=== PATIENT | female | born 1985 | race Caucasian/White ===

== ENCOUNTER → 2017-07-02 17:20 | Outpatient (CLI) | payer OTHER, SELFPAY ==
[2017-07-02 21:10] LABS: Chlamydia Trachomatis by PCR Negative (Negative); Neisserai gonorrhoeae by PCR Negative (Negative); Probe Check PASS; Sample Adequacy Control PASS; Specimen Processing Control PASS
== END ==
PROVIDERS: Visit Provider Obstetrics & Gynecology
DX: Z34.90 Encounter for supervision of normal pregnancy, unspecified, unspecified trimester (principal); Z3A.00 Weeks of gestation of pregnancy not specified
CPT/HCPCS: 87086; 87491; 87591

== ENCOUNTER → 2017-07-29 16:28 | Outpatient (CLI) | payer OTHER, SELFPAY ==
[2017-07-29 18:11] LABS: Absolute Lymphocyte Count 2.28 X10^3/ul (0.83-4.51); Absolute Neutrophil Count 5.4 X10^3/uL (2.0-7.7); Basophil# 0.02 X10^3/uL; Basophil% 0.2 % (0-1); Eosinophil# 0.17 X10^3/uL; Hematocrit 39.7 % (37-47); Hemoglobin 13.3 g/dl (12.0-15.0); Lymphocyte # 2.28 X10^3/ul (4.0); Lymphocyte % 26.5 % (19-41); Mean Corp Hgb Conc 33.5 g/gl (32-36); Mean Corpuscular Volume 89.6 fL (81-99); Mean Platelet Vol. 9.8 fl (6.2-12.0); Monocyte# 0.73 X10^3/uL; Monocyte% 8.5 % (0-10); Neutrophil # 5.39 X10^3/uL (2.7-7.7); Neutrophil % 62.6 % (47-70); Platelet Count 300 K/mm3 (150-450); RBC Distribution Width CV 12.8 % (11.6-14.6); RBC Distribution Width SD 41.5 fl (35.1-43.9); Red Blood Count 4.43 M/mm3 (4.2-5.4); White Blood Count 8.6 K/mm3 (4.4-11.0)
[2017-07-29 18:14] LABS: POSITIVE COUNT NO; POSITIVE DIFFERENTIAL NO; POSITIVE MORPHOLOGY NO
[2017-07-29 19:35] LABS: HIV - WCH Non-Reactive (Nonreactive); Rubella IgG 206.6 IU/mL
[2017-07-31 07:08] LABS: Rapid Plasmin Reagin (RPR) NONREACTIVE (NONREACTIVE)
[2017-07-31 14:50] LABS: HEPATITIS B SURFACE AG Negative (Negative)
== END ==
PROVIDERS: Visit Provider Obstetrics & Gynecology
DX: Z34.90 Encounter for supervision of normal pregnancy, unspecified, unspecified trimester (principal); Z3A.00 Weeks of gestation of pregnancy not specified
CPT/HCPCS: 36415; 85025; 86592; 86703; 86762; 86850; 86900; 87340

== ENCOUNTER → 2017-09-21 16:25 | Outpatient (CLI) | payer OTHER, SELFPAY ==
--- NOTE | 2017-09-21 16:26 | US_ITS ---
STUDY: SECOND AND THIRD TRIMESTER OBSTETRICAL ULTRASOUND REASON FOR EXAM: Female, 32 years old. anatomy. LMP: 05/06/2017. TECHNIQUE: Transabdominal. Patient deferred transvaginal exam. PRIOR ULTRASOUND: None. FINDINGS: There is a single intrauterine fetus. The fetus is in a cephalic presentation. There is demonstrated cardiac activity with a heart rate of 150 bpm. There is a normal amniotic fluid volume. The largest amniotic fluid pocket measures 5.6 cm. The amniotic fluid index (KARL) is cm. The placenta is posterior not low-lying. There are Grade 1 placental changes. The cervix measures 4.2 cm in length. BIOMETRY: BPD: 4.5 cm: 19 weeks, 6 days HC: 17.5 cm: 20 weeks, 0 days AC: 15.3 cm: 20 weeks, 4 days FL: 3.2 cm: 20 weeks, 1 days CI: 81 FL/BPD: 71 FL/HC: FL/AC: 21 HC/AC: 1.14 age by current US: 20 weeks, 1 days. PATT by current US: 02/07/2018. Estimated weight: 340 grams, +/- 50 grams, 75 %. Age by LMP: 19 weeks, 5 days. PATT by LMP: 02/10/2018. ANATOMY: Lateral ventricles, choroid plexus, cerebellum, cisterna magna, face nose and lips were visualized. 4 chamber heart, diaphragm, stomach, abdominal wall, three-vessel cord, kidneys, bladder, cervical, thoracic and lumbar spine, sacrum, upper and lower extremities were visualized. Possible marginal or eccentric cord insertion. Male gender. US/OB Anatomy Scan IMPRESSION: Single living intrauterine gestation in cephalic position. Estimated gestational age by ultrasound 20 weeks 1 day. Anatomy visualized. Possible marginal cord insertion. Nuchal fold measurement not obtained. Electronically Signed: Hermann Rice MD at 5:43 EDT , Service support ,
== END ==
PROVIDERS: Visit Provider Obstetrics & Gynecology
DX: Z34.90 Encounter for supervision of normal pregnancy, unspecified, unspecified trimester (principal)
CPT/HCPCS: 76805

== ENCOUNTER → 2017-11-24 10:21 | Outpatient (CLI) | payer OTHER, SELFPAY ==
[2017-11-24 12:13] LABS: Absolute Neutrophil Count 6.2 X10^3/uL (2.0-7.7); Basophil# 0.01 X10^3/uL; Basophil% 0.1 % (0-1); Eosinophil# 0.17 X10^3/uL; Eosinophils% 1.9 % (0-5); Hematocrit 35.9 % (37-47); Hemoglobin 11.5 g/dl (12.0-15.0); Lymphocyte % 18.3 % (19-41); Mean Corpuscular Hgb 29.8 pg (27.0-32.0); Mean Platelet Vol. 10.7 fl (6.2-12.0); Monocyte# 0.75 X10^3/uL; Monocyte% 8.6 % (0-10); Neutrophil # 6.21 X10^3/uL (2.7-7.7); Neutrophil % 70.9 % (47-70); POSITIVE COUNT NO; POSITIVE DIFFERENTIAL NO; POSITIVE MORPHOLOGY NO; Platelet Count 220 K/mm3 (150-450); RBC Distribution Width CV 14.2 % (11.6-14.6); RBC Distribution Width SD 47.9 fl (35.1-43.9); Red Blood Count 3.86 M/mm3 (4.2-5.4); White Blood Count 8.8 K/mm3 (4.4-11.0)
[2017-11-24 12:39] LABS: Glucose Challenge Gest 1H 50g 106 mg/dL (70-140)
== END ==
PROVIDERS: Visit Provider Obstetrics & Gynecology
DX: Z34.81 Encounter for supervision of other normal pregnancy, first trimester (principal)
CPT/HCPCS: 36415; 82950; 85025

== ENCOUNTER 2018-02-04 05:35 | Inpatient (IN) | payer OTHER, SELFPAY ==
--- NOTE | 2018-02-03 21:11 | PCM.HPOB.BLA ---
- Problem List (1) History of 2 sections Status: Acute Comment: plan repeat cs (2) Supervision of normal Status: Acute Qualifiers: Comment: PRR PATT 02/10/18 [facility] Tai Garcia Nir History and Physical Date of Admission: 02/03/18 01/26/18 Height 5 ft 3.5 in 01/26/18 Weight: 198 lb 8 oz 01/26/18 Body Mass Index (BMI) 34.6 01/26/18 Blood Pressure 122/74 Allergies No Known Allergies Allergy (Verified 01/26/18 11:39) Medications Vits [Prenatabs FA] 1 tab PO DAILY 11/27/14 [History Confirmed 01/26/18] Last Menstral Period: 05/06/17 Zika: Zika virus screening: Negative : No PFSH PFSH Surgical History delivery delivered (Acute) History of tonsillectomy (Acute) Family History Mother Arthritis Hypertension Grandmother Heart disease Social History Smoking Status: Never smoker alcohol intake: never substance use type: does not use caffeine: No frequency: 1-2 times per week seatbelt use: always do you feel safe at home: Yes 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 Date Name GA/Weeks Outcome Route Bth Weight Gen Labor Lgth Anesthesia Del Locatn Provider FOB 02/27/12 Jose 39 live - full term 7 lbs 11 oz Male spinal [place] 11/29/14 Tai 39 live - full term 8 lbs 5 oz Male spinal [facility] Delivery Date: 11/29/14 On 01/05/18 @ 11:56 Rachel Salas No issues during or delivery. Delivery Date: 02/27/12 On 01/05/18 @ 11:55 Rachel Salas No issues during or delivery. HPI est ob 38: Details: JOS HARVEY is a 32 year old who presents for repeat LTCS OB Visit PATT Calculator Estimated Delivery Date 02/10/18 Based on LMP (certain) 05/06/17 Current WG 37w 6d Number 1 Expected Delivery Route/Plan RLTCS Specific Issue/Plans flu vaccine: declines minichart given: tdap vaccine: declines rhogam: na LARC form signed: declines labor support person: pain management: cut cord/dad catch: : no PP control planned: pill special requests: Initial Weight: 183 lb Date EGA Weight BP Urine Prot Glucose FHR FuHt Pres Mov CTX Dilation Effaced St Visit Note Provider Comments 07/29/17 12w 0d 183 lb 3 oz (+3 oz) 127/79 Negative Negative 170 no vb cramping SM 08/27/17 16w 1d 186 lb 6 oz (+3 lb 6 oz) 116/74 Negative Negative 155 no vb cramping no vb cramping doing well SM 09/28/17 20w 5d 187 lb 6 oz (+4 lb 6 oz) 110/76 Negative Negative 150 no vb cramping SM 10/27/17 24w 6d 187 lb 4 oz (+4 lb 4 oz) 120/78 Negative Negative 150 Active no vb lof good fm no regular ctx 11/24/17 28w 6d 189 lb 3 oz (+6 lb 3 oz) 115/58 Negative Negative 145 29 Oblique Active no vb lof good fm no regular ctx 12/08/17 30w 6d 190 lb 2 oz (+7 lb 2 oz) 119/66 Negative Negative 140 32 Cephalic Active absent no vb lof good fm no regular ctx, able to have intercourse now thanks to the dilators 12/22/17 32w 6d 192 lb 2 oz (+9 lb 2 oz) 100/68 Negative Negative 152 33 Transverse Active absent Doing well. No VB, LOF. 01/05/18 34w 6d 192 lb 4 oz (+9 lb 4 oz) 132/85 Negative Negative 147 35 Unstable Active absent NO VB, LOF. Good FM. Doing well 01/12/18 35w 6d 194 lb 4 oz (+11 lb 4 oz) 127/68 Negative Negative 140 36 Cephalic Active absent no vb lof good fm no regular ctx 01/26/18 37w 6d 198 lb 8 oz (+15 lb 8 oz) 122/74 Negative Negative 35 37 Cephalic Active absent no vb lof good fm no regular ctx Visit Notes Visit Date: 01/26/18 no vb lof good fm no regular ctx Sona Smart MD on 01/26/18 Visit Date: 01/12/18 no vb lof good fm no regular ctx Sona Smart MD on 01/12/18 Visit Date: 01/05/18 NO VB, LOF. Good FM. Doing well KYLEE PierreC on 01/05/18 Visit Date: 12/22/17 Doing well. No VB, LOF. AKASH Pierre on 12/22/17 Visit Date: 12/08/17 no vb lof good fm no regular ctx, able to have intercourse now thanks to the dilators Sona Smart MD on 12/08/17 Visit Date: 11/24/17 no vb lof good fm no regular ctx Sona Smart MD on 11/24/17 Visit Date: 10/27/17 no vb lof good fm no regular ctx Sona Smart MD on 10/27/17 Visit Date: 09/28/17 no vb cramping Sona Smart MD on 09/28/17 Visit Date: 08/27/17 no vb cramping doing well Sona Smart MD on 08/27/17 no vb cramping Sona Smart MD on 07/29/17 no vb cramping Sona Smart MD on 07/29/17 Visit Date: 07/29/17 no vb cramping Sona Smart MD on 07/29/17 ACOG First Trimester First Trimester: Desire for , Alcohol, Tobacco Cessation, Illicit/Recreational Drug/Substance Use, Intimate Partner Violence, Barriers to care, Unstable Housing, Communication Barriers, Environmental/Work Hazards, Anticipated Course of Care, Toxoplasmosis Precations, Use of Any medications, Sexual activity, Exercise, Dental Care, Sauna/Hot tub use, Seat Belt use, Childbirth classes/Hospital facilities, , Travel, Indications for US and Screening for Aneuploidy Diagnostics Diagnostics Labs Blood Type O POSITIVE 07/29/17 Antibody Screen NEGATIVE 07/29/17 Hct 35.9 % (37-47) L 11/24/17 Hgb 11.5 g/dl (12.0-15.0) L 11/24/17 Obstetrics Ultrasound 09/21/17 Rubella IgG Antibody 206.6 IU/mL 07/29/17 RPR NONREACTIVE (NONREACTIVE) 07/29/17 Hep Bs Antigen Negative (Negative) 07/29/17 Chlam trachomat DNA PCR Negative (Negative) 07/02/17 N.gonorrhoeae DNA (PCR) Negative (Negative) 07/02/17 Glucose 1 Hr 50 gm 106 mg/dL (70-140) 11/24/17 Details: HIV: Urine Culture: Sequential Screen: NIPT Screen: Results [id number] Office Urine Glucose Negative Last Edit by Avis Owens on 01/26/18 11:59 Office Urine Protein Negative Last Edit by Avis Owens on 01/26/18 11:59 Assessment & Plan Problems 1. Encounter for supervision of other normal in first trimester Z34.81 PRR PATT 02/10/18 [facility] Tai Garcia Nir 2. History of 2 sections Z87.59 plan repeat cs
[2018-02-04] VITALS (19 sets, daily range): BP systolic 107–131; BP diastolic 52–82; PULSE 63–80; RESP 14–18; TEMP 36.4–37.2; O2SAT 97–100; BMI 35.1
[2018-02-04] MEDS: Lactated Ringers 1,000 ML 999 ML IV (06:00)
[2018-02-04 06:16] LABS: Absolute Lymphocyte Count 2.15 X10^3/ul (0.83-4.51); Absolute Neutrophil Count 5.7 X10^3/uL (2.0-7.7); Basophil# 0.02 X10^3/uL; Basophil% 0.2 % (0-1); Eosinophil# 0.11 X10^3/uL; Eosinophils% 1.2 % (0-5); Hemoglobin 11.9 g/dl (12.0-15.0); Lymphocyte # 2.15 X10^3/ul (4.0); Lymphocyte % 23.6 % (19-41); Mean Corp Hgb Conc 33.1 g/gl (32-36); Mean Corpuscular Hgb 30.3 pg (27.0-32.0); Mean Corpuscular Volume 91.6 fL (81-99); Monocyte# 1.12 X10^3/uL; Monocyte% 12.3 % (0-10); Neutrophil # 5.69 X10^3/uL (2.7-7.7); Neutrophil % 62.4 % (47-70); Platelet Count 176 K/mm3 (150-450); RBC Distribution Width CV 14.1 % (11.6-14.6); Red Blood Count 3.93 M/mm3 (4.2-5.4); White Blood Count 9.1 K/mm3 (4.4-11.0)
[2018-02-04 06:19] LABS: POSITIVE COUNT NO; POSITIVE DIFFERENTIAL NO; POSITIVE MORPHOLOGY NO
[2018-02-04] MEDS: Lactated Ringers 1,000 ML 150 ML IV (06:44)
[2018-02-04] MEDS: Sodium Citrate/Citric Acid 30 ML UDC PO (06:45)
[2018-02-04] MEDS: Cefazolin 2 GM in 0.9% Normal Saline 100 ML IV (07:28)
[2018-02-04] MEDS: Oxytocin 30 units/NS 500 ml 30 UNITS/500 ML IV.SOLN 167 UNITS IV (07:54)
--- NOTE | 2018-02-04 08:18 | PCM.OPRPT ---
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 Spinal anesthesia was placed without difficulty. Fenton catheter was placed. The patient was placed in the dorsal supine position with leftward tilt. Patient was prepped and draped in the normal sterile fashion. Pfannenstiel skin incision was made with the scalpel and carried through to the underlying layer of fascia with the scalpel. Fascia was nicked in the midline and the incision extended laterally. The rectus bellies were dissected off superiorly and inferiorly with out complication both sharply and bluntly. The peritoneum was entered digitally. The incision was stretched and a low transverse uterine incision was made with the scalpel. The 's head was delivered atraumatically followed by the anterior and posterior shoulders without complication the rest of the delivered. The cord was clamped and cut and the was handed off to awaiting nurse. The placenta was delivered spontaneously immediately following and was noted to be intact and have a three-vessel cord. The uterus was exteriorized cleared of all clots and debris, and the incision was closed in a single layer closure using #1 Monocryl. The uterus was returned to the maternal abdomen and gutters were cleared of all clots and debris. The ovaries and fallopian tubes were noted to be within normal limits. Carl was applied to the incision had some raw areas and excellent hemostasis was noted. The peritoneum was closed with 3-0 Monocryl in a running fashion. Fascia was closed with 0 PDS in a running fashion. Subcutaneous tissue was copiously irrigated and the skin was closed with 3-0 Monocryl in a subcuticular fashion. Mepilex dressing were applied without complication. Patient was taken to recovery in stable condition. Patient request Pap smear was performed.
[2018-02-04] MEDS: Ketorolac 30 MG/ML Syringe IV ×3 (08:30→19:04)
[2018-02-04] MEDS: Lactated Ringers 1,000 ML 100 ML IV ×2 (08:51→20:02)
--- NOTE | 2018-02-04 09:33 | NURSING ---
jose pad and green pad changed, 5cm clot expressed. will cont to monitor
--- NOTE | 2018-02-04 09:51 | NURSING ---
peripad and cloth chux weighed. lochia weight = 266cc. small amt lochia since pad change
--- NOTE | 2018-02-04 19:22 | PCM.DCCSEC ---
Discharge Diet: No Restrictions Discharge Activity: May Not Drive - for 2 weeks, May not drive while taking narcotic pain medications., May Shower, May Take a Tub Bath - in 7 days May resume sexual activity in: 4-6 weeks Lifting Restrictions: 20 pounds Additional Activity Instructions:: Nothing in the vagina for 4-6 weeks. You may return to work/school in 6 weeks. Call your doctor if your incision/area has: Continuous Slow Oozing, Sudden Increased Bleeding, Increased Pain/ Swelling, Increased Redness, Foul Smelling Discharge Call your doctor if you observe: Fever of 101 or Higher, Using more than one pad per hour - for 2 hours Suture Line Care: Avoid Pulling/Pushing, Avoid Pinching/Bending Cleanse incision/area with: Keep Dressing Clean & Dry Additional Instructions: If you experience any of the following, contact your healthcare provider. Bleeding that soaks a pad every hour for 2 hours Fever 100.4 or higher Unrelieved incision or abdominal pain Swelling, redness, discharge or bleeding from your incision or episiotomy site Your incision begins to separate Problems urinating (including inability to urinate or burning while urinating). Visual changes Severe headache Flu-like symptoms Pain or redness in one of both of your breasts Pain, warmth, tenderness or swelling in your legs, especially the calf area Frequent nausea and vomiting Symptoms of depression or anxiety If you experience any of the following, call 911 or go to the nearest Emergency Room. Chest pain Problems breathing Seizure activity Partial or complete paralysis of a body part, slurred speech, weakness or drooping of the face, or a sudden inability to walk or hold your balance Allergies/Adverse Reactions: Allergies No Known Allergies Allergy (Verified 02/02/18 10:27) Medications to take at Discharge Vits [Prenatabs FA] 1 tab PO DAILY 11/27/14 Naproxen [Naprosyn] 250 - 500 mg PO Q8H PRN PRN #30 tab 02/04/18 Oxycodone HCl/Acetaminophen [Percocet 5-325] 1 - 2 tablet PO Q4H PRN PRN 7 Days #28 tablet 02/04/18 The following prescriptions were given: Oxycodone HCl/Acetaminophen [Percocet 5-325] 1 - 2 tablet PO Q4H PRN PRN 7 Days #28 tablet PRN Reason: Moderate-Severe pain Naproxen [Naprosyn] 250 - 500 mg PO Q8H PRN PRN #30 tab PRN Reason: MILD PAIN Follow-Up: Call to make an appointment with your doctor for an incision check in 1-2 weeks. You will also need a 6 week post- follow up appointment. Test results from this visit will be discussed in further detail at your follow-up appointment, if applicable. Please Follow Up With: Sona Smart MD - Call to make an appointment for an incision check in 1-2 [phone] When: You will need a post- check in 6 weeks. Primary Care Physician: Care Physician,No Primary [Primary Care Provider] -
--- NOTE | 2018-02-04 20:03 | NURSING ---
Refused evening dose of lovenox. Educated pt on use, side effects, and administration. Pt states she did not get blood thinners with previous c-sections and does not wish to take tonight. SCDs in place.
[2018-02-05] VITALS (8 sets, daily range): BP systolic 101–127; BP diastolic 43–77; PULSE 61–85; RESP 16–18; TEMP 36.6–36.8; O2SAT 96–100
[2018-02-05] MEDS: Ketorolac 30 MG/ML Syringe IV ×2 (00:57→05:52)
[2018-02-05 06:25] LABS: Hematocrit 30.3 % (37-47); Hemoglobin 9.9 g/dl (12.0-15.0); Mean Corp Hgb Conc 32.7 g/gl (32-36); Mean Corpuscular Volume 91.8 fL (81-99); Mean Platelet Vol. 10.7 fl (6.2-12.0); Platelet Count 152 K/mm3 (150-450); RBC Distribution Width CV 14.2 % (11.6-14.6); RBC Distribution Width SD 46.3 fl (35.1-43.9); White Blood Count 7.7 K/mm3 (4.4-11.0)
[2018-02-05 06:28] LABS: Scan Indicated on CBC? Y/N NO
--- NOTE | 2018-02-05 08:25 | PCM.PN.OB ---
Subjective: No SOB, CP. Doing well. Pain controlled - Physical Exam General: Alert, Oriented x3 Abdomen: Soft, Non-Distended, - - Minimal tenderness with exam. Dressing dry and intact Vital Signs Temp Pulse Resp BP Pulse Ox 97.8 F 85 16 101/46 L 99 02/05/18 05:40 02/05/18 05:40 02/05/18 05:40 02/05/18 05:40 02/05/18 05:40 Oxygen Delivery Method Room Air Weight: 198 lb 3.2 oz Body Mass Index (BMI) 35.1 Intake and Output for Last 24 Hours 02/03/18 02/04/18 02/05/18 23:59 23:59 23:59 Intake Total 6230 / 6230 1229 / 1229 Output Total 2900 / 2900 1400 / 1400 Balance 3330 / 3330 -171 / -171 Laboratory Tests Past 24 Hrs 02/05/18 06:10 WBC 7.7 RBC 3.30 L Hgb 9.9 L Hct 30.3 L MCV 91.8 MCH 30.0 MCHC 32.7 RDW 14.2 RDW Differential 46.3 H Plt Count 152 MPV 10.7 Medical Necessity - Tobacco Use Smoking Status: Never smoker Assessment/Plan All Active Problems (Last Reviewed 02/02/18 @ 10:27 by Neelam Ramirez) History of 2 sections (Acute) Supervision of normal (Acute) ltrcs POD#1: Doing well. Pain controlled. Routine care today. Bottle feeding.
[2018-02-05] MEDS: Acetaminophen 500 MG Tablet 1000 MG PO ×2 (10:46→18:45)
[2018-02-05] MEDS: Prenatal Vits Tablet 1 TABLET PO (10:46)
[2018-02-05] MEDS: 0.9% Saline Lock 10 ML Syringe IV (11:55)
[2018-02-05] MEDS: Naproxen 250 MG Tablet PO ×2 (12:12→20:13)
[2018-02-06 02:40] VITALS: BP 117/68; PULSE 78; RESP 18; TEMP 36.4
[2018-02-06] MEDS: Acetaminophen 500 MG Tablet 1000 MG PO (02:49)
[2018-02-06 08:00] VITALS: BP 126/62; PULSE 74; RESP 16; TEMP 36.4
--- NOTE | 2018-02-06 08:17 | PCM.PN.OB ---
Subjective: No CP, SOB. doing well. Pain controlled - Physical Exam General: Alert, Oriented x3 Abdomen: Soft, Non-Distended, - - Minimal tenderness. Dressing dry and intact Vital Signs Temp Pulse Resp BP Pulse Ox 97.5 F L 74 16 126/62 H 98 02/06/18 08:00 02/06/18 08:00 02/06/18 08:00 02/06/18 08:00 02/05/18 16:20 Oxygen Delivery Method Room Air Weight: 198 lb 3.2 oz Body Mass Index (BMI) 35.1 Intake and Output for Last 24 Hours 02/04/18 02/05/18 02/06/18 23:59 23:59 23:59 Intake Total 6230 / 6230 1229 / 1229 Output Total 2900 / 2900 3750 / 3750 Balance 3330 / 3330 -2521 / -2521 Laboratory Tests Past 24 Hrs 02/04/18 08:00 Pap Smear Diagnosis Pending Medical Necessity - Tobacco Use Smoking Status: Never smoker Assessment/Plan All Active Problems (Last Reviewed 02/02/18 @ 10:27 by Neelam Ramirez) History of 2 sections (Acute) Supervision of normal (Acute) Routine care Pain controlled with OTC aleve. Bottle feeding RH positive Plans home today and declines Rx for pain meds.
--- NOTE | 2018-02-06 08:22 | PCM.DCVAG ---
Discharge Diet: No Restrictions Discharge Activity: May Not Drive - for 2 weeks, May not drive while taking narcotic pain medications., May Shower, May Take a Tub Bath - in 7 days May resume sexual activity in: 4-6 weeks Additional Activity Instructions:: Nothing in the vagina for 4-6 weeks. You may return to work/school in 6 weeks. Call your doctor if your incision/area has: Continuous Slow Oozing, Sudden Increased Bleeding, Increased Pain/ Swelling, Increased Redness, Foul Smelling Discharge Call your doctor if you observe: Fever of 101 or Higher, Using more than one pad per hour - for 2 hours Suture Line Care: Avoid Pulling/Pushing, Avoid Pinching/Bending Cleanse incision/area with: Keep Dressing Clean & Dry Additional Instructions: If you experience any of the following, contact your healthcare provider. Bleeding that soaks a pad every hour for 2 hours Fever 100.4 or higher Unrelieved incision or abdominal pain Swelling, redness, discharge or bleeding from your incision or episiotomy site Your incision begins to separate Problems urinating (including inability to urinate or burning while urinating). Visual changes Severe headache Flu-like symptoms Pain or redness in one of both of your breasts Pain, warmth, tenderness or swelling in your legs, especially the calf area Frequent nausea and vomiting Symptoms of depression or anxiety If you experience any of the following, call 911 or go to the nearest Emergency Room. Chest pain Problems breathing Seizure activity Partial or complete paralysis of a body part, slurred speech, weakness or drooping of the face, or a sudden inability to walk or hold your balance Allergies/Adverse Reactions: Allergies No Known Allergies Allergy (Verified 02/02/18 10:27) Medications to take at Discharge Vits [Prenatabs FA] 1 tab PO DAILY 11/27/14 Naproxen [Naprosyn] 250 - 500 mg PO Q8H PRN PRN #30 tab 02/04/18 Oxycodone HCl/Acetaminophen [Percocet 5-325] 1 - 2 tablet PO Q4H PRN PRN 7 Days #28 tablet 02/04/18 The following prescriptions were given: Oxycodone HCl/Acetaminophen [Percocet 5-325] 1 - 2 tablet PO Q4H PRN PRN 7 Days #28 tablet PRN Reason: Moderate-Severe pain Naproxen [Naprosyn] 250 - 500 mg PO Q8H PRN PRN #30 tab PRN Reason: MILD PAIN Primary Care Physician: Care Physician,No Primary [Primary Care Provider] - Test Results: Test results from this visit will be discussed in further detail at your follow-up appointment, if applicable.
[2018-02-11 11:33] LABS: HPV APTIMA, High Risk Negative (Negative)
== END 2018-02-06 09:30 | disposition home or self-care (01) | DRG 766 ==
PROVIDERS: Admitting Provider Obstetrics & Gynecology; Visit Provider Obstetrics & Gynecology
PROC: 10D00Z1 Extraction of Products of Conception, Low, Open Approach (ICD-10-PCS; CPT 59514; principal; 2018-02-04 07:15)
DX: O34.211 Maternal care for low transverse scar from previous cesarean delivery (principal); Z3A.37 37 weeks gestation of pregnancy; Z37.0 Single live birth
CPT/HCPCS: 85025; 85027; 86850; 86900; 88175; 99218; J7120; A4216; G0145; G0378; J2405

== ENCOUNTER → 2020-10-04 14:41 | Outpatient (CLI) | payer OTHER, SELFPAY ==
[2020-10-04 13:57] VITALS: BMI 31.4
[2020-10-04 15:09] LABS: Absolute Lymphocyte Count 1.79 X10^3/uL (0.83-4.51); Absolute Neutrophil Count 4.8 X10^3/uL (2.0-7.7); Basophil# 0.03 X10^3/uL; Basophil% 0.4 % (0-1); Eosinophil# 0.14 X10^3/uL; Eosinophils% 1.9 % (0-5); Hematocrit 38.3 % (37-47); Hemoglobin 12.9 g/dL (12.0-15.0); Lymphocyte # 1.79 X10^3/ul (0.83-4.51); Lymphocyte % 23.9 % (19-41); Mean Corp Hgb Conc 33.7 g/dL (32-36); Mean Corpuscular Hgb 30.1 pg (27.0-32.0); Mean Corpuscular Volume 89.3 fL (81-99); Mean Platelet Vol. 9.8 fl (6.2-12.0); Monocyte# 0.69 X10^3/uL; Monocyte% 9.2 % (0-10); NRBC Flagged by Analyzer 0 % (0-5); Neutrophil # 4.82 X10^3/uL (2.7-7.7); Neutrophil % 64.2 % (47-70); Platelet Count 294 K/mm3 (150-450); RBC Distribution Width CV 12.3 % (11.6-14.6); RBC Distribution Width SD 40.2 fl (35.1-43.9); Red Blood Count 4.29 M/mm3 (4.2-5.4); White Blood Count 7.5 K/mm3 (4.4-11.0)
[2020-10-04 16:03] LABS: NATERA MAILED SPECIMEN
[2020-10-04 16:07] LABS: HIV - WCH Non-Reactive (Nonreactive); Hepatitis B Surface Antigen Non-Reactive (Nonreactive); Hepatitis C Antibody Non-Reactive (Nonreactive); Rubella IgG Reactive (Nonreactive); Syphilis Antibodies Non-reactive
[2020-10-04 17:21] LABS: Amphetamine Urine VISTA NEGATIVE (<1000 ng/mL); Barbiturate Urine VISTA NEGATIVE (< 200 ng/mL); Benzodiazepine Urine VISTA NEGATIVE (< 200 ng/mL); Cocaine Urine VISTA NEGATIVE (< 300 ng/mL); Ecstacy Urine VISTA NEGATIVE (< 500 ng/mL); Methadone Urine VISTA NEGATIVE (< 300 ng/mL); PCP Urine VISTA NEGATIVE (< 25 ng/mL); THC Urine VISTA NEGATIVE (< 50 ng/mL); Vista UDS pH Range 6
[2020-10-09 03:06] LABS: Chlamydia By Nucleic Acid AMP Negative (Negative)
[2020-10-09 10:59] LABS: Gonococcus By Nucleic Acid AMP Negative (Negative)
[2020-10-09 13:33] LABS: HPV APTIMA, High Risk Negative (Negative)
== END ==
PROVIDERS: Referring Provider Obstetrics & Gynecology; Visit Provider Obstetrics & Gynecology
DX: O09.529 Supervision of elderly multigravida, unspecified trimester (principal); Z12.4 Encounter for screening for malignant neoplasm of cervix; Z11.3 Encounter for screening for infections with a predominantly sexual mode of transmission; Z98.891 History of uterine scar from previous surgery; Z3A.00 Weeks of gestation of pregnancy not specified
CPT/HCPCS: 36415; 80307; 85025; 86703; 86762; 86780; 86803; 86850; 86900; 86901; 87086; 87340; 87491; 87591; 87624; 88175; G0145

== ENCOUNTER → 2021-01-25 15:00 | Outpatient (CLI) | payer OTHER, SELFPAY ==
[2021-01-25 17:20] LABS: Glucose Challenge Gest 1H 50g 113 mg/dL (70-140)
== END ==
PROVIDERS: Obstetrics & Gynecology; Referring Provider Obstetrics & Gynecology; Visit Provider Obstetrics & Gynecology
DX: O09.90 Supervision of high risk pregnancy, unspecified, unspecified trimester (principal); Z13.1 Encounter for screening for diabetes mellitus; Z3A.00 Weeks of gestation of pregnancy not specified
CPT/HCPCS: 36415; 82950

== ENCOUNTER → 2021-02-19 14:10 | Outpatient (CLI) | payer OTHER, SELFPAY ==
[2021-02-19 14:23] LABS: Absolute Lymphocyte Count 1.93 X10^3/uL (0.83-4.51); Absolute Neutrophil Count 7.5 X10^3/uL (2.0-7.7); Basophil# 0.03 X10^3/uL; Basophil% 0.3 % (0-1); Eosinophil# 0.21 X10^3/uL; Hematocrit 35.3 % (37-47); Hemoglobin 11.7 g/dL (12.0-15.0); Lymphocyte # 1.93 X10^3/ul (0.83-4.51); Lymphocyte % 18.2 % (19-41); Mean Corp Hgb Conc 33.1 g/dL (32-36); Mean Corpuscular Hgb 30.9 pg (27.0-32.0); Mean Corpuscular Volume 93.1 fL (81-99); Mean Platelet Vol. 10.3 fl (6.2-12.0); Monocyte% 7.6 % (0-10); NRBC Flagged by Analyzer 0 % (0-5); Neutrophil # 7.49 X10^3/uL (2.7-7.7); Neutrophil % 70.7 % (47-70); Platelet Count 209 K/mm3 (150-450); RBC Distribution Width CV 13.7 % (11.6-14.6); RBC Distribution Width SD 46.5 fl (35.1-43.9); Red Blood Count 3.79 M/mm3 (4.2-5.4); White Blood Count 10.6 K/mm3 (4.4-11.0)
== END ==
PROVIDERS: Referring Provider Obstetrics & Gynecology; Visit Provider Obstetrics & Gynecology
DX: O09.90 Supervision of high risk pregnancy, unspecified, unspecified trimester (principal); Z3A.00 Weeks of gestation of pregnancy not specified
CPT/HCPCS: 36415; 85025

== ENCOUNTER → 2021-03-22 | Outpatient (CLI) | payer OTHER, SELFPAY | END | disposition home or self-care (01) | PROVIDERS: Referring Provider Obstetrics & Gynecology; Visit Provider Obstetrics & Gynecology | DX: Z34.93 Encounter for supervision of normal pregnancy, unspecified, third trimester (principal); Z3A.31 31 weeks gestation of pregnancy | CPT/HCPCS: 87081 ==

== ENCOUNTER → 2021-03-29 08:58 | Outpatient (CLI) | payer OTHER, SELFPAY ==
--- NOTE | 2021-03-29 09:01 | US_ITS ---
STUDY: SECOND AND THIRD TRIMESTER OBSTETRICAL ULTRASOUND - LIMITED REASON FOR EXAM: Female, 35 years old growth LMP: 07/11/2020. PRIOR ULTRASOUND: None. TECHNIQUE: Transabdominal TECHNICAL QUALITY: Adequate. FINDINGS: There is a single intrauterine fetus. The fetus is in a cephalic presentation. There is demonstrated cardiac activity with a heart rate of 135 bpm. There is a normal amniotic fluid volume. The largest amniotic fluid pocket measures 5 cm. The amniotic fluid index (KARL) is 12.9 cm. The placenta is anterior in location and is not low lying. There are Grade 2 placental changes. The cervix measures 3.5 cm in length. BIOMETRY: BPD: 9.3 cm: 37 weeks, 5 days HC: 33.5 cm: 38 weeks, 3 days AC: 35.2 cm: 39 weeks, 1 days FL: 7.3 cm: 37 weeks, 2 days Age by LMP: 37 weeks, 2 days. PATT by LMP: 04/17/2021. age by current US: 38 weeks, 1 days. PATT by current US: 04/11/2021. Estimated weight: 3479 grams, +/- 508 grams, 84 percentile. US/OB Limited With Biometrics IMPRESSION: Single live intrauterine gestation with mean gestational age of 38 weeks and 1 day. Electronically Signed: Darrian Harris MD at 13:00 EDT , Service support ,
== END ==
PROVIDERS: Referring Provider Obstetrics & Gynecology; Visit Provider Obstetrics & Gynecology
DX: O09.523 Supervision of elderly multigravida, third trimester (principal); Z3A.38 38 weeks gestation of pregnancy
CPT/HCPCS: 76816

== ENCOUNTER → 2021-04-05 | Outpatient (CLI) | payer OTHER, SELFPAY | END | disposition home or self-care (01) | PROVIDERS: Referring Provider Obstetrics & Gynecology; Visit Provider Obstetrics & Gynecology | DX: O34.219 Maternal care for unspecified type scar from previous cesarean delivery (principal); Z20.822 Contact with and (suspected) exposure to COVID-19; Z3A.37 37 weeks gestation of pregnancy | CPT/HCPCS: 87635; U0005; U0003 ==

== ENCOUNTER 2021-04-10 10:00 | Inpatient (IN) | payer OTHER, SELFPAY ==
[2021-01-04 14:25] VITALS: BMI 31.4
[2021-04-10] VITALS (18 sets, daily range): BP systolic 101–133; BP diastolic 41–76; PULSE 63–96; RESP 16–18; TEMP 36.3–36.7; O2SAT 97–100; BMI 34.3
[2021-04-10] MEDS: Lactated Ringers 1,000 ML 999 ML IV (10:33)
[2021-04-10] MEDS: Acetaminophen 500 MG Tablet 1000 MG PO ×2 (10:46→18:09)
[2021-04-10 10:48] LABS: Absolute Lymphocyte Count 1.94 X10^3/uL (0.83-4.51); Absolute Neutrophil Count 4.8 X10^3/uL (2.0-7.7); Basophil# 0.02 X10^3/uL; Basophil% 0.3 % (0-1); Eosinophil# 0.12 X10^3/uL; Eosinophils% 1.6 % (0-5); Hemoglobin 11.2 g/dL (12.0-15.0); Lymphocyte # 1.94 X10^3/ul (0.83-4.51); Lymphocyte % 25.3 % (19-41); Mean Corp Hgb Conc 32.9 g/dL (32-36); Mean Corpuscular Hgb 29.4 pg (27.0-32.0); Mean Corpuscular Volume 89.2 fL (81-99); Monocyte% 9.1 % (0-10); NRBC Flagged by Analyzer 0 % (0-5); Neutrophil # 4.83 X10^3/uL (2.7-7.7); Neutrophil % 62.8 % (47-70); Platelet Count 177 K/mm3 (150-450); RBC Distribution Width CV 13.9 % (11.6-14.6); Red Blood Count 3.81 M/mm3 (4.2-5.4); White Blood Count 7.7 K/mm3 (4.4-11.0)
[2021-04-10] MEDS: Lactated Ringers 1,000 ML 150 ML IV (11:31)
[2021-04-10] MEDS: Sodium Citrate/Citric Acid 30 ML UDC PO (11:50)
[2021-04-10] MEDS: Cefazolin 2 GM in 0.9% Normal Saline 100 ML IV (12:03)
--- NOTE | 2021-04-10 12:08 | HP.PCM.OB_ITS ---
HPI - General General Date of Admission: 04/10/21 HPI Narrative JOS HARVEY, is a 35 F who presents for RLTCS Maternal Data Information PATT Calculator Estimated Delivery Date Method Current WG Current Estimate 04/17/21 Ultrasound #1 39w 0d Other Estimates 04/26/21 LMP (Certain) 37w 5d PFSH PFSH Home Medications vit,[id number] 1 tab PO DAILY 11/27/14 [History Last Taken 04/09/21 10:00 1 tab] Allergy/AdvReac Type Severity Reaction Status Date / Time No Known Allergies Allergy Verified 03/29/21 14:52 Family History Mother Arthritis Hypertension Grandmother Heart disease Surgical History delivery delivered History of tonsillectomy Social History household members: family number of children: 3 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 Date Name GA/Weeks Outcome Route Bth Weight Gen Labor Lgth Anesthesia Del Locatn Provider FOB 02/27/12 Jose 39 live - full term 7 lbs 11 oz Male 0 spinal [place] Nir 11/29/14 Tai 39 live - full term 8 lbs 5 oz Male [address] [facility] [place] N[facility] 02/04/18 Donell 39 live - full term 8lbs 5.5oz Male 0 spinal [facility] Nir Delivery Date: 02/27/12 No issues during or delivery. MaritzaRachel Delivery Date: 11/29/14 No issues during or delivery. MaritzaRachel Delivery Date: 02/04/18 No complications Nicole Gonzalez Visit Details Expected Delivery Route/Plan rltcs with Plans covid status: pos in june, counseled regarding risk of covid in vs vaccination and declined vaccination flu vaccine: [] tdap vaccine: declines rhogam: [] LARC form signed: [] Problem list reviewed and updated with the most current plan of care details and appropriate orders placed. Relevant counseling for the gestational age provided. Continue routine care and follow up unless otherwise noted in visit notes/problem list details OB Flowsheet Initial Weight: 184 lb Date -?-?-?-?-?-?-?-?-?-?-?-?- EGA Weight BP Urine Prot -?-?-?-?-?-?-?-?-?-?-?-?- Glucose FHR FuHt Pres Dilation -?-?-?-?-?-?-?-?-?-?-?-?- Effaced St Visit Note 10/04/20 -?-?-?-?-?-?-?-?-?-?-?-?- 12w 1d 184 lb (+0 oz) 120/82 -?-?-?-?-?-?-?-?-?-?-?-?- 160 -?-?-?-?-?-?-?-?-?-?-?-?- SM- CRL 5 cm not cons with LMP 11/01/20 -?-?-?-?-?-?-?-?-?-?-?-?- 16w 1d 184 lb 4 oz (+4 oz) 120/82 Negative -?-?-?-?-?-?-?-?-?-?-?-?- Negative 160 -?-?-?-?-?-?-?-?-?-?-?-?- GP - no LOF, VB, DFM, ctx. Denies complaints. 12/07/20 -?-?-?-?-?-?-?-?-?-?-?-?- 21w 2d 187 lb (+3 lb) 116/82 Negative -?-?-?-?-?-?-?-?-?-?-?-?- Negative 150 -?-?-?-?-?-?-?-?-?-?-?-?- SM- no vb lof go od fm no reuglar ctx 01/04/21 -?-?-?-?-?--?-?-?-?-?-?-?- 25w 2d 189 lb (+5 lb) 124/88 Negative -?-?-?-?-?-?-?-?-?-?-?-?- Negative 150 25 -?-?-?-?-?-?-?-?-?-?-?-?- SM- no vb lof go od fm no regular ctx 01/25/21 -?-?-?-?-?-?-?-?-?-?-?-?- 28w 2d 189 lb 4 oz (+5 lb 4 oz) 130/76 Negative -?-?-?-?-?-?--?-?-?-?-?-?- Negative 150 28 -?-?-?-?-?-?-?-?-?-?-?-?- GP - no ctx, LOF , VB, DFM. GCT drawn today. CBC not drawn - will check next visit. GP - no ctx, LOF, VB, DFM. G CT drawn today. CBC not drawn - will check next visit. Declines TDAP. 02/13/21 -?-?-?-?-?-?-?-?-?-?-?-?- 31w 0d 191 lb 2 oz (+7 lb 2 oz) 130/80 Negative -?-?-?-?-?-?-?-?-?-?-?-?- Negative 150 31 -?-?-?-?-?-?-?-?-?-?-?-?- GP - no LOF, VB, DFM, ctx. Unable to get CBC drawn today - will come back and have drawn 02/22/21 -?-?-?-?-?-?-?-?-?-?-?-?- 32w 2d 192 lb (+8 lb) 126/64 Negative -?-?-?-?-?-?-?-?-?-?-?-?- Negative 145 33 -?-?-?-?-?-?-?-?-?-?-?-?- SM- no vb lof g ood fm no regular ctx 03/08/21 -?-?-?-?-?-?-?-?-?-?-?-?- 34w 2d 191 lb (+7 lb) 114/62 Negative -?-?-?-?-?-?-?-?-?-?-?-?- Negative 145 34 -?-?-?-?-?-?-?-?-?-?-?-?- GP - no LOF, VB, DFM, ctx. Denies complaints. 03/22/21 -?-?-?-?-?-?-?-?-?-?-?-?- 36w 2d 194 lb 4 oz (+10 lb 4 oz) 130/60 Negative -?-?-?-?-?-?-?-?-?-?-?-?- Negative 140 37 -?-?-?-?-?-?-?-?-?-?-?-?- SM- no vb lof go od fm no regular ctx gbs done 03/29/21 -?-?-?-?-?-?-?-?-?-?-?-?- 37w 2d 196 lb 6 oz (+12 lb 6 oz) 136/78 Negative -?-?-?-?-?-?-?-?-?-?-?-?- Negative 140 37 -?-?-?-?-?-?-?-?-?-?-?-?- SM- no vb lof go od fno reugalr ctx 04/10/21 -?-?--?-?-?-?-?-?-?-?-?-?- 39w 0d 197 lb (+13 lb) 124/76 -?-?-?-?-?-?-?-?-?-?-?-?- -?-?-?-?-?-?-?-?-?-?-?-?- NST FHR Rate Baby A Baseline: 130 ROS Constitutional Constitutional: Reports systems reviewed and no addt'l complaints, except as documented Eyes Eyes: Denies change in vision ENT HEENT: Reports systems reviewed and no addt'l complaints, except as documented; Denies headache(s) Cardiovascular Cardiovascular: Reports systems reviewed and no addt'l complaints, except as documented; Denies chest pain or dyspnea Respiratory/Chest Respiratory/Chest: Reports systems reviewed and no addt'l complaints, except as documented Gastrointestinal Gastrointestinal: Reports systems reviewed and no addt'l complaints, except as documented; Denies abdominal pain Genitourinary Genitourinary: Reports systems reviewed and no addt'l complaints, except as documented, contractions Details: present (irregular) and movement Details: present; Denies dysuria or genital lesions Musculoskeletal Musculoskeletal: Reports systems reviewed and no addt'l complaints, except as documented Neurologic Neurologic: Reports systems reviewed and no addt'l complaints, except as documented Endocrine Endocrinology: Reports systems reviewed and no addt'l complaints, except as documented Vital Signs Vital Signs Vital Signs: 04/10/21 11:13 Temperature 97.9 F Temperature Source Temporal Pulse Rate 96 Respiratory Rate 18 Blood Pressure 124/76 H Blood Pressure Mean 92 Blood Pressure Source Monitor Blood Pressure Position Semi-Fowlers Blood Pressure Location Right Arm Pulse Ox 99 Oxygen Delivery Method Room Air Weight Weight: 197 lb Body Mass Index (BMI) 34.3 Physical Exam Const alert, oriented x3, no apparent distress and healthy appearing HEENT normocephalic and moist oral mucous membranes Head and Scalp: atraumatic Neck full ROM, no lymphadenopathy, supple and thyroid normal General: trachea midline Lymph Lymphatic: no lymphadenopathy noted Chest inspection of chest normal Resp normal respiratory effort Cardio regular rate GI normal to inspection, nondistended, normoactive bowel sounds, soft to palpation and non-tender Inspection: gravid Extremity normal to inspection General Extremity: Negative for edema Skin no rashes or lesions noted Neuro no focal motor deficits and deep tendon reflexes 2+ bilaterally Motor Exam: strength 5/5 throughout and clonus absent Psych mental status grossly normal Labs Labs Labs: Blood Type O POSITIVE Antibody Screen NEGATIVE Hct 34.0 % (37-47) L Hgb 11.2 g/dL (12.0-15.0) L Obstetrics US Syphilis Total Ab Non-reactive Rubella IgG Antibody Reactive (Nonreactive) Hep Bs Antigen Non-Reactive (Nonreactive) Neisseria gonorrhoeae DNA (KATIA) Negative (Negative) HIV 1&2 Antibody Non-Reactive (Nonreactive) C.trachomatis DNA (PCR) Negative (Negative) Glucose 1 Hr 50 gm 113 mg/dL (70-140) Assessment & Plan (1) H/O section: COMMENT: RLTCS w/ SM 04/10 @ 12 (2) AMA (advanced maternal age) multigravida 35+: COMMENT: growth US at 36 weeks. NIPT LR (3) Supervision of high risk , antepartum: COMMENT: PRR PATT: 04/17/21 boy PC: Tai Garcia Benjamin Spouse: Nir (4) : QUALIFIERS: Weeks of gestation: 37 weeks Qualified Code(s): Z3A.37 - 37 weeks gestation of COMMENT: LR genetics (boy), carrier neg. , ntd declined. anatomy nl PLAN: plan RLTCS (5) Lab test negative for COVID-19 virus: COMMENT: 04/05/21
--- NOTE | 2021-04-10 13:11 | EX.PCM.OBRPT ---
Assessment & Plan (1) delivery delivered: COMMENT: SM 39 RLTCS boy (2) H/O section: COMMENT: RLTCS w/ SM 04/10 @ 12 (3) AMA (advanced maternal age) multigravida 35+: COMMENT: growth US at 36 weeks. NIPT LR (4) Supervision of high risk , antepartum: COMMENT: PRR PATT: 04/17/21 boy PC: Tai Garcia Benjamin Spouse: Nir (5) : QUALIFIERS: Weeks of gestation: 37 weeks Qualified Code(s): Z3A.37 - 37 weeks gestation of COMMENT: LR genetics (boy), carrier neg. , ntd declined. 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 Fenton catheter was placed. The patient was placed in the dorsal supine position with leftward tilt. Patient was prepped and draped in the normal sterile fashion. Pfannenstiel skin incision was made with the scalpel and carried through to the underlying layer of fascia with the scalpel. Fascia was nicked in the midline and the incision extended laterally. The rectus bellies were dissected off superiorly and inferiorly with out complication both sharply and bluntly. The peritoneum was entered digitally. The incision was stretched and a low transverse uterine incision was made with the scalpel. The 's head was delivered atraumatically followed by the anterior and posterior shoulders without complication the rest of the infant delivered. The cord was clamped and cut and the was handed off to awaiting nurse. The placenta was delivered spontaneously immediately following and was noted to be intact and have a three-vessel cord. The uterus was exteriorized cleared of all clots and debris, and the incision was closed in a double layer closure using #1 Monocryl. The ovaries and fallopian tubes were noted to be within normal limits. The uterus was returned to the maternal abdomen and gutters were cleared of all clots and debris. The peritoneum was closed with 3-0 Monocryl in a running fashion. Gloves were changed prior to fascial closure. Fascia was closed with 0 PDS in a running fashion. Subcutaneous tissue was copiously irrigated and the skin was closed with 3-0 Monocryl in a subcuticular fashion. Mepilex dressing was applied without complication. Patient was taken to recovery in stable condition. It was discussed with the patient that based on the clinical information obtained during this encounter, combined with her history, at this time I would recommend cesareans for future deliveries if further pregnancies are desired. Amniotic Membrane Rupture Type: Artificial Amniotic Fluid Description: Clear Placenta Disposition: [facility] Cord Vessel Description: 3 Vessels Cord Entanglement: None Delayed Cord Clamping: Yes Complications Risks of Surgery Discussed w/Patient: Bleeding, Infection, Need for Future C-Sections and Injury to surrounding structure(s) including bowel and bladder Vaginal Delivery Complication Complications: None Admit VTE Documentation VTE Present on Admission: No VTE Mechan Device Prophylaxis: SCD's Procedures Urinary/Genital [id number]: [id number] Delivery [facility]
--- NOTE | 2021-04-10 13:12 | PCM.DC ---
Discharge Instructions Diet Discharge Diet: No restrictions Activity Discharge Activity: May Not Drive (for 2 weeks or while taking narcotic pain medications.), May Shower and May Take a Tub Bath (in 7 days) May shower in (days): 0 May resume sexual activity in: 4-6 weeks Weight Bearing Status: Full weight bearing Dressing / Incision Call your doctor if your incision/area has: Continuous Slow Oozing, Sudden Increased Bleeding, Increased Pain/ Swelling, Increased Redness and Foul Smelling Discharge Call your doctor if you observe: Fever of 101 or Higher and Using more than 1 pad per hour (for 2 hours) Suture Line Care: Avoid Pulling/Pushing and Avoid Pinching/Bending Cleanse incision/area with: Soap & Water and Keep Dressing Clean & Dry Follow Up Care Please Follow Up With: Sona Smart MD When: Call [phone] to make an appointment for an incision check in 1-2 weeks. Test Results: Test results from this visit will be discussed in further detail at your follow-up appointment, if applicable. Discharge Plan Admission Admit Date/Time: 04/10/21 10:00 Primary Reason for Your Visit: delivery Attending Provider: Sona Smart Primary Care Provider: Michael Coleman,Leonor Primary Discharge Orders/Prescriptions Prescriptions: New naproxen 250 MG tablet 250 - 500 mg PO Q8H PRN PRN (Reason: MILD PAIN) Qty: 30 RF: 1 oxycodone-acetaminophen [Percocet] 5-325 mg tablet 1 tab PO Q6H PRN (Reason: pain) 7 Days Qty: 20 RF: 0 Continued vit,[id number] 1 TABLET tablet 1 tab PO DAILY RF: 0 Referrals / Follow Up: Care Physician,No Primary [Primary Care Provider] - Disposition Disposition (needs filled in before D/C Order can be placed): Home, Self Care
[2021-04-10] MEDS: Oxytocin 30 units/NS 500 ml 30 UNITS/500 ML IV.SOLN 167 UNITS IV (13:20)
[2021-04-10] MEDS: Ketorolac 30 MG/ML Syringe IV ×2 (13:39→20:23)
[2021-04-10] MEDS: 0.9% Saline Lock 10 ML Syringe IV (13:39)
[2021-04-10] MEDS: Lactated Ringers 1,000 ML 100 ML IV (16:35)
[2021-04-11 00:26] VITALS: BP 111/55; PULSE 61; RESP 18; O2SAT 98
[2021-04-11] MEDS: Acetaminophen 500 MG Tablet 1000 MG PO ×3 (00:28→11:53)
[2021-04-11] MEDS: Ketorolac 30 MG/ML Syringe IV ×2 (02:08→09:05)
[2021-04-11 04:42] VITALS: BP 121/49; PULSE 73; RESP 18; TEMP 36.1
[2021-04-11 04:59] LABS: Hematocrit 28.7 % (37-47); Hemoglobin 9.6 g/dL (12.0-15.0); Mean Corp Hgb Conc 33.4 g/dL (32-36); Mean Corpuscular Hgb 30.1 pg (27.0-32.0); Mean Platelet Vol. 11.3 fl (6.2-12.0); Platelet Count 145 K/mm3 (150-450); RBC Distribution Width CV 13.7 % (11.6-14.6); RBC Distribution Width SD 45.1 fl (35.1-43.9); Red Blood Count 3.19 M/mm3 (4.2-5.4); White Blood Count 7.9 K/mm3 (4.4-11.0)
--- NOTE | 2021-04-11 07:53 | PN.OBGYN_ITS ---
Subjective Subjective Patient doing well without complaints. Tolerating PO. Ambulating and voiding without difficulty. feeding well. Denies chest pain, shortness of breath, calf pain/swelling, fevers, chills, lightheadedness. Objective Data Objective Data Vital Signs: Vital Signs Temp Pulse Resp BP Pulse Ox 97 F L 73 18 121/49 H 98 04/11/21 04:42 04/11/21 04:42 04/11/21 04:42 04/11/21 04:42 04/11/21 00:26 Oxygen Delivery Method Room Air Weight: 197 lb Body Mass Index (BMI) 34.3 Intake & Output: Intake and Output for Last 24 Hours 04/09/21 04/10/21 04/11/21 23:59 23:59 23:59 Intake Total 2184.85 / 2184.85 966.67 / 966.67 Output Total 1000 / 1000 700 / 700 Balance 1184.85 / 1184.85 266.67 / 266.67 Lab / Micro Data Result Diagrams: 04/11/21 05:44 Labs: Laboratory Results - last 24 hr 04/10/21 10:33: WBC 7.7, RBC 3.81 L, Hgb 11.2 L, Hct 34.0 L, MCV 89.2, MCH 29.4, MCHC 32.9, RDW Std Deviation 45.0 H, RDW Coeff of Leelee 13.9, Plt Count 177, MPV 12.0, Immature Gran % (Auto) 0.900, Neut % (Auto) 62.8, Lymph % (Auto) 25.3, [place] % (Auto) 9.1, Eos % (Auto) 1.6, Baso % (Auto) 0.3, Absolute Neuts (auto) 4.8, Absolute Lymphs (auto) 1.94, Nucleated RBC % 0 04/10/21 10:33: Blood Type O POSITIVE, Antibody Screen NEGATIVE 04/11/21 05:44: WBC 7.9, RBC 3.19 L, Hgb 9.6 L, Hct 28.7 L, MCV 90.0, MCH 30.1, MCHC 33.4, RDW Std Deviation 45.1 H, RDW Coeff of Leelee 13.7, Plt Count 145 L, MPV 11.3 ROS Constitutional Constitutional: Reports systems reviewed and no addt'l complaints, except as d ocumented Cardiovascular Cardiovascular: Reports systems reviewed and no addt'l complaints, except as documented Respiratory/Chest Respiratory/Chest: Reports systems reviewed and no addt'l complaints, except as documented Gastrointestinal Gastrointestinal: Reports systems reviewed and no addt'l complaints, except as documented Physical Exam Const alert, oriented x3 and no apparent distress HEENT Head and Scalp: atraumatic Resp normal respiratory effort GI soft to palpation and non-tender Inspection: incision intact, healing well and drainage (none) Bimanual Exam - Vag & Uterus: uterus non-tender Uterus Palpation: uterus fundus firm (below Umbilicus) Assessment & Plan (1) delivery delivered: COMMENT: SM 39 RLTCS boy PLAN: s/p LTCS PPD # 1 1. routine post care 2. breast feeding- support given 3. rh positive 4. rubella immune
--- NOTE | 2021-04-11 08:44 | PCM.PN.OB ---
Subjective Subjective Patient is laying in bed comfortably without complaints. She states that she slept on an off during the night. Lochia is mild and pain is minimal. Objective Data Objective Data Vital Signs: Vital Signs Temp Pulse Resp BP Pulse Ox 97 F L 73 18 121/49 H 98 04/11/21 04:42 04/11/21 04:42 04/11/21 04:42 04/11/21 04:42 04/11/21 00:26 Oxygen Delivery Method Room Air Weight: 197 lb Body Mass Index (BMI) 34.3 Intake & Output: Intake and Output for Last 24 Hours 04/09/21 04/10/21 04/11/21 23:59 23:59 23:59 Intake Total 2184.85 / 2184.85 966.67 / 966.67 Output Total 1000 / 1000 700 / 700 Balance 1184.85 / 1184.85 266.67 / 266.67 Lab / Micro Data Result Diagrams: 04/11/21 05:44 Labs: Laboratory Results - last 24 hr 04/10/21 10:33: WBC 7.7, RBC 3.81 L, Hgb 11.2 L, Hct 34.0 L, MCV 89.2, MCH 29.4, MCHC 32.9, RDW Std Deviation 45.0 H, RDW Coeff of Leelee 13.9, Plt Count 177, MPV 12.0, Immature Gran % (Auto) 0.900, Neut % (Auto) 62.8, Lymph % (Auto) 25.3, [place] % (Auto) 9.1, Eos % (Auto) 1.6, Baso % (Auto) 0.3, Absolute Neuts (auto) 4.8, Absolute Lymphs (auto) 1.94, Nucleated RBC % 0 04/10/21 10:33: Blood Type O POSITIVE, Antibody Screen NEGATIVE 04/11/21 05:44: WBC 7.9, RBC 3.19 L, Hgb 9.6 L, Hct 28.7 L, MCV 90.0, MCH 30.1, MCHC 33.4, RDW Std Deviation 45.1 H, RDW Coeff of Leelee 13.7, Plt Count 145 L, MPV 11.3 ROS Constitutional Constitutional: Reports systems reviewed and no addt'l complaints, except as documented Cardiovascular Cardiovascular: Denies chest pain, dizziness, dyspnea or irregular heart rhythm Respiratory/Chest Respiratory/Chest: Denies cough, pain on inspiration or shortness of breath at rest Gastrointestinal Gastrointestinal: Denies abdominal pain, nausea or vomiting Genitourinary Genitourinary: Denies burning urination Musculoskeletal Musculoskeletal: Denies muscle cramps, muscle spasms or muscle weakness Neurologic Neurologic: Denies confusion, dizziness, headache(s) or lack of coordination Psychiatric Psychiatric: Denies anxiety, behavioral changes or depression Physical Exam HEENT normocephalic Resp normal respiratory effort and normal air movement GI soft to palpation, non-tender and non-distended Rectal Exam: other Other Details: Incision is clean, dry, and intact no CVA tenderness Extremity normal to inspection General Extremity: edema bilateral (trace ) Assessment & Plan (1) delivery delivered: COMMENT: 39 RLTCS boy PLAN: s/p LTCS PPD # 1 1. routine post care 2. breast feeding- support given 3. rh positive 4. rubella immune
[2021-04-11] MEDS: 0.9% Saline Lock 10 ML Syringe IV (09:05)
[2021-04-11 09:10] VITALS: BP 126/75; PULSE 73; RESP 14; TEMP 36.4
[2021-04-11] MEDS: Senna/Docusate Sodium 1 Tablet PO (11:56)
[2021-04-11 13:30] VITALS: BP 110/45; PULSE 80; RESP 14; TEMP 36.9
[2021-04-11] MEDS: Naproxen 500 MG Tablet PO (14:04)
== END 2021-04-11 15:00 | disposition home or self-care (01) | DRG 788 ==
PROVIDERS: Admitting Provider Obstetrics & Gynecology; Referring Provider Obstetrics & Gynecology; Visit Provider Obstetrics & Gynecology
PROC: 10D00Z1 Extraction of Products of Conception, Low, Open Approach (ICD-10-PCS; CPT 59514; principal; 2021-04-10 11:45)
DX: O34.211 Maternal care for low transverse scar from previous cesarean delivery (principal); Z3A.37 37 weeks gestation of pregnancy; Z37.0 Single live birth
CPT/HCPCS: 36415; 85025; 85027; 86850; 86900; 86901; 99218; 99251; J7120; A4216; G0378; G0463; J2405